=== PATIENT | female | born 1960 | race Caucasian/White ===

== ENCOUNTER → 2016-11-28 | Outpatient (CLI) | payer BC ==
[2016-11-28 18:18] LABS: CH 31.1; CHCM 32.8; HDW 2.17; HGB 13.9 gm/dL (11.4-16.0); MCH 30.7 pg (25.0-35.0); MCHC 32.3 g/dL (31.0-37.0); MCV 95.1 fL (80.0-100.0); RBC 4.52 m/uL (3.80-5.40); RDW 12.9 % (11.5-15.5); WBC 8.6 k/uL (3.8-10.6)
[2016-11-28 18:31] LABS: ALT 63 U/L (9-52); AST 35 U/L (14-36); Alkaline Phosphatase 81 U/L (38-126); Anion Gap 11 mmol/L; Blood Urea Nitrogen 14 mg/dL (7-17); Calcium 9.7 mg/dL (8.4-10.2); Carbon Dioxide 28 mmol/L (22-30); Chloride 102 mmol/L (98-107); Glucose 98 mg/dL (74-99); Non-African American GFR(MDRD) >60 (>60 ml/min/1.73 sqM); Potassium 4.2 mmol/L (3.5-5.1); Sodium 141 mmol/L (137-145); Total Bilirubin 0.6 mg/dL (0.2-1.3); Total Protein 7.5 g/dL (6.3-8.2)
== END ==
LOC: LAB 17:54
PROVIDERS: ATTEND Surgery Plastic and Reconstructive Surgery
DX: K80.10 Calculus of gallbladder with chronic cholecystitis without obstruction (principal); R10.11 Right upper quadrant pain
CPT/HCPCS: 80053; 85027

== ENCOUNTER → 2016-11-29 | Outpatient (CLI) | payer BC ==
--- NOTE | 2016-11-29 08:05 | US ---
EXAMINATION TYPE: US gallbladder DATE OF EXAM: 11/29/2016 COMPARISON: NONE CLINICAL HISTORY: Gallstones K80.10. pt had prior scan elsewhere that showed gb stones EXAM MEASUREMENTS: Liver Length: 15.3 cm Gallbladder Wall: 0.3 cm CBD: 0.4 cm Right Kidney: 9.2 x 3.9 x 5.0 cm Pancreas: wnl Liver: wnl Gallbladder: filled with shadowing stones and debris, wall is borderline thickened, no pericholecyst ic fluid Evidence for sonographic Cunningham's sign: no CBD: wnl Right Kidney: wnl Stone filled gallbladder is present. There is no pericholecystic fluid collection or abnormal gallbla dder wall thickening. Sonographic Cunningham's sign is negative. IMPRESSION: Stone filled gallbladder without secondary ultrasound evidence for acute cholecystitis.
== END | disposition home or self-care (01) ==
LOC: RADUSWWP 07:21
PROVIDERS: ATTEND Surgery Plastic and Reconstructive Surgery
DX: K80.20 Calculus of gallbladder without cholecystitis without obstruction (principal)
CPT/HCPCS: 76705

== ENCOUNTER → 2016-12-01 | Day surgery (SDC) | payer BC ==
[~2016-12-01] MED LIST: ACETAMINOPHEN IV (For NPO) 1,000 MG in EMPTY BAG 1 BAG IVPB STA; D5-0.45% NACL WITH KCL 20MEQ/L 1,000 ML IV SCH; DEXAMETHASONE SOD PHOSPHATE 10 MG/ML 1 ML VIAL IV ONE; GLYCOPYRROLATE 0.2 MG/ML 2 ML VIAL ONE; HEPARIN SODIUM,PORCINE 5,000 UNIT/ML 1 ML VIAL SQ ONE; HYDROcodone/APAP 5-325MG 1 EACH TAB PO PRN; KETOROLAC 30 MG/ML 1 ML VIAL ONE; LACTATED RINGERS 1,000 ML IV SCH; LIDOCAINE 1% 20 ML VIAL (10MG/ML) FOR IV START INTRADERMA ONE; LIDOCAINE 1% INJ 10MG/ML (20 ML MDV) ONE; LIDOCAINE 1% INJ 10MG/ML (20 ML MDV) SQ ONE; LIDOCAINE 4% (PF) 5 ML AMP IH ONE; MIDAZOLAM 2 MG/2 ML VIAL ONE; NALOXONE 0.4 MG/ML 1 ML VIAL IV PRN; NEOSTIGMINE 1 MG/ML 10 ML VIAL ONE; ONDANSETRON 4 MG/2 ML VIAL IVP PRN; ONDANSETRON 4 MG/2 ML VIAL ONE; PHENYLEPHRINE-0.9% NACL SYG 1 MG/10 ML SYRINGE ONE; PROPOFOL 10 MG/ML 20 ML VIAL IV ONE; ROCURONIUM BROMIDE 10 MG/ML 10 ML VIAL IV ONE; SCOPOLAMINE 1.5MG/72HR PATCH TRANSDERM ONE; SODIUM CHLORIDE 0.9% 50 ML with CLINDAMYCIN 600 MG IV ONE; SUCCINYLCHOLINE CHLORIDE 100 MG/5 ML SYR IV ONE; ceFAZolin 2 GM in SODIUM CHLORIDE 0.9% 100 ML IVPB ONE; ePHEDrine 50 MG/ML 1 ML AMP ONE; fentaNYL (PF) 50 MCG/ML 2 ML AMP ONE
[2016-12-01 06:18] VITALS: RESP 16
[2016-12-01] MEDS: ONDANSETRON 4 MG/2 ML VIAL IVP ONE ×3 (06:40→09:40)
--- NOTE | 2016-12-01 07:00 | P.GSHP ---
History of Present Illness H&P Date: 12/01/16 CHIEF COMPLAINT: Cholecystitis HISTORY OF PRESENT ILLNESS: The patient is a 56-year-old female who presents with history of symptomatic gallstones. She underwent diagnostic studies for her gallbladder. Separately her clinical picture is consistent with cholecystitis. Now she presents for surgical intervention. PAST MEDICAL HISTORY: Please see list PAST SURGICAL HISTORY: Please see list MEDICATIONS: Please see list ALLERGIES: Denies. SOCIAL HISTORY: No illicit drug use or recent tobacco use FAMILY HISTORY: Pertinent for gallbladder disease REVIEW OF ORGAN SYSTEMS: CONSTITUTIONAL: No reports of fevers or chills. HEENT: Denies any troubles with the vision or hearing. ENDOCRINE: No reports of hypothyroidism. No diabetes. RESPIRATORY: No recent pneumonias. CARDIOVASCULAR: Denies chest pain or palpitations GI: No blood in stools or constipation. MUSCULOSKELETAL: Denies active joint pain. NEURO: No seizure disorders or headaches. No recent stroke. PSYCH: No depression or suicidal ideation. HEMATOLOGIC: No personal or family history of DVTs or pulmonary emboli. PHYSICAL EXAM: VITAL SIGNS: Afebrile vital signs stable GENERAL: Well-developed pleasant in no acute distress. HEENT: No scleral icterus. Extraocular movements grossly intact. Moist buccal mucosa. NECK: Supple without lymphadenopathy. CHEST: Unlabored respirations. Equal bilateral excursions. CARDIOVASCULAR: Regular rate regular rhythm rhythm. Distal 2+ pulses. ABDOMEN: Soft, nondistended. Minimal tenderness right upper quadrant. MUSCULOSKELETAL: No clubbing, cyanosis, or edema. NEURO: Cranial nerves II to XII within normal limits. No focal or lateralizing signs. PSYCH: Alert and oriented to person, place and time. ASSESSMENT: 1. Right upper quadrant abdominal pain 2. Chronic cholecystitis 3. Symptomatic gallstones. PLAN: 1. Will need a laparoscopic cholecystectomy possible open. Benefits and risks were described. 2. Heparin for DVT prophylaxis 5000 units. 3. Antibiotic prophylaxis. Past Medical History Additional Past Medical History / Comment(s): PRECLAMPSIA History of Any Multi-Drug Resistant Organisms: None Reported Past Surgical History: Section Additional Past Surgical History / Comment(s): HEMORROIDECTOMY, COLONOSCOPSY Past Psychological History: No Psychological Hx Reported Smoking Status: Never smoker Past Alcohol Use History: None Reported Past Drug Use History: None Reported Medications and Allergies Home Medications Medication Instructions Recorded Confirmed Type No Known Home Medications [No 11/30/16 12/01/16 History Known Home Medications] Allergies Allergy/AdvReac Type Severity Reaction Status Date / Time prochlorperazine Allergy Mild Unknown Verified 12/01/16 06:12 [From Compazine] bupivacaine [From Marcaine] Allergy AVOIDS D/T Verified 12/01/16 06:12 FAMILY HX metoclopramide [From Reglan] Allergy DYSTONIC Verified 12/01/16 06:12 REACTION Penicillins Allergy Unknown Verified 12/01/16 06:12 Childhood Surgical - Exam Vital Signs Temp Pulse Resp BP Pulse Ox 98.3 F 90 16 127/84 98 12/01/16 06:17 12/01/16 06:17 12/01/16 06:17 12/01/16 06:17 12/01/16 06:17
[2016-12-01 08:56] VITALS: TEMP 97.8
[2016-12-01] MEDS: HYDROmorphone 1 MG/ML 1 ML SYRINGE IVP PRN ×5 (09:07→09:37)
--- NOTE | 2016-12-01 10:04 | P.PCN ---
Date of Procedure: 12/01/16 Preoperative Diagnosis: Symptomatic gallstones Postoperative Diagnosis: Same Procedure(s) Performed: Laparoscopic cholecystectomy Implants: Anesthesia: GETA, local (40 lidocaine no epinephrine) Surgeon: Venita Castano Estimated Blood Loss (ml): 5 Pathology: other (Gallbladder) Condition: stable Disposition: same day Indications for Procedure: Operative Findings: Adhesions along the lower abdomen, gallstones with chronic cholecystitis Description of Procedure:
[2016-12-01 11:17] VITALS: BP 102/67; PULSE 87
== END | disposition home or self-care (01) ==
LOC: OR 05:59
PROVIDERS: ATTEND Surgery Plastic and Reconstructive Surgery
DX: K80.10 Calculus of gallbladder with chronic cholecystitis without obstruction (principal); Z88.0 Allergy status to penicillin; Z88.8 Allergy status to other drugs, medicaments and biological substances
CPT/HCPCS: 88304; 47562; J2001 ×2; J2250; J1644; J1100; J2710; J2405; J3010; J1885; J1170; J0131; J2370; J0330; J2704

== ENCOUNTER → 2017-11-20 | Outpatient (CLI) | payer BC ==
--- NOTE | 2017-11-20 15:37 | XR ---
EXAMINATION TYPE: XR chest 2V DATE OF EXAM: 11/20/2017 COMPARISON: NONE TECHNIQUE: PA and lateral views submitted. HISTORY: Chest pain FINDINGS: The lungs are clear and there is no pneumothorax, pleural effusion, or focal pneumonia. Biapical pl eural thickening. No overt failure. Hypertrophic change of the spine. Surgical clips in the abdomen. IMPRESSION: 1. No acute process.
== END | disposition home or self-care (01) ==
LOC: RADXRMAIN 15:13
PROVIDERS: ATTEND Emergency Medicine
DX: R07.9 Chest pain, unspecified (principal); R79.1 Abnormal coagulation profile
CPT/HCPCS: 71046

== ENCOUNTER → 2017-11-20 | Outpatient (CLI) | payer BC ==
[2017-11-20 15:19] LABS: HCT 44.4 % (34.0-46.0); HGB 14.9 gm/dL (11.4-16.0); MCH 30.5 pg (25.0-35.0); MCHC 33.5 g/dL (31.0-37.0); MCV 90.9 fL (80.0-100.0); Mean Platelet Volume 6.8; Platelet Count 278 k/uL (150-450); RBC 4.89 m/uL (3.80-5.40); RDW 12.8 % (11.5-15.5); WBC 7.8 k/uL (3.8-10.6)
[2017-11-20 15:30] LABS: ALT 50 U/L (9-52); AST 38 U/L (14-36); Albumin 4.7 g/dL (3.5-5.0); Alkaline Phosphatase 77 U/L (38-126); Anion Gap 12 mmol/L; Blood Urea Nitrogen 13 mg/dL (7-17); Carbon Dioxide 26 mmol/L (22-30); Chloride 105 mmol/L (98-107); Glucose 97 mg/dL (74-99); Magnesium 2.1 mg/dL (1.6-2.3); Potassium 4.5 mmol/L (3.5-5.1); Sodium 143 mmol/L (137-145); Total Bilirubin 0.6 mg/dL (0.2-1.3); Total Protein 7.3 g/dL (6.3-8.2)
[2017-11-20 15:49] LABS: Creatine Kinase 164 U/L (30-135)
[2017-11-20 16:00] LABS: Troponin I <0.012 ng/mL (0.000-0.034)
== END | disposition home or self-care (01) ==
LOC: RADXRMAIN 14:55
PROVIDERS: ATTEND Emergency Medicine
DX: R07.9 Chest pain, unspecified (principal)
CPT/HCPCS: 80053; 82550; 82553; 83735; 84484; 85027; 85379

== ENCOUNTER → 2018-01-21 | Outpatient (CLI) | payer BC ==
--- NOTE | 2018-01-21 18:01 | XR ---
Thoracic spine HISTORY: Pain 3 views of the thoracic spine There is a mild spinal curvature noted. Surgical clips are present in the right upper quadrant. Thora cic vertebral bodies show preserved height, bone mineralization. Multilevel spondylosis is present. M ild loss of disc height and intervertebral levels. IMPRESSION: Degenerative disc disease, mild spinal curvature.
--- NOTE | 2018-01-21 18:05 | XR ---
Cervical spine HISTORY: Pain 5 views of the cervical spine Cervical vertebral bodies show preserved height and bone mineralization. There is reversal the normal cervical lordosis centered at C5-6. Loss of disc height present at the intervertebral levels, there is multilevel spondylosis. Prevertebral soft tissues are normal. Oblique views show foraminal encroac hment due to lateral extension of endplates at C4-5, C5-6 and C6-7 bilaterally, C3-4 and the right, C 7-T1 on the right. Rudimentary cervical ribs noted at C7 on the left greater than right. IMPRESSION: Degenerative disc disease, cervical MRI may be of benefit.
== END | disposition home or self-care (01) ==
LOC: RADXRMAIN 13:38
PROVIDERS: ATTEND Emergency Medicine
DX: M50.33 Other cervical disc degeneration, cervicothoracic region (principal); M43.8X4 Other specified deforming dorsopathies, thoracic region
CPT/HCPCS: 72050; 72072

== ENCOUNTER → 2018-01-21 | Outpatient (CLI) | payer BC ==
--- NOTE | 2018-01-21 21:24 | MR ---
MRI CERVICAL SPINE: CLINICAL HISTORY: Neck pain TECHNIQUE: Multiplanar, multisequence imaging of the cervical spine is performed without IV contrast. COMPARISON: Plain film same date FINDINGS: Sagittal images of the cervical spine show the craniocervical junction to appear within nor mal limits. The cervical and upper thoracic spinal cord is normal in course, caliber, and signal. V ertebral alignment is anatomic. There is multilevel spondylosis with associated endplate discogenic marrow signal change, loss of dis c height signal present at C3-4, C4-5, C5-6 and C6-7. C2-3: Minimal posterior disc bulge causes only slight anterior mass effect on the thecal sac. C3-4: Posterior extension of endplate disc complex extends circumferentially to cause bilateral yifan inal encroachment, there is only mild anterior mass effect on the thecal sac. C4-5: Posterior extension of endplate disc complex results in only mild central canal stenosis, later al extension of endplate disc complex encroaches on the right greater than left neural foramen C5-6: Lateral extension endplate disc complex causes bilateral foraminal encroachment. Posterior exte nsion endplate disc complex causes mild anterior mass effect on the thecal sac. C6-7: Posterior extension endplate disc complex causes only mild anterior mass effect on the thecal s ac, lateral extension endplate disc complex causes bilateral foraminal encroachment. C7-T1: Within normal limits IMPRESSION: Multilevel degenerative disc disease, foraminal encroachment. Mild central canal stenosis as described. MRI thoracic spine: Multiplanar multisequence imaging through the thoracic spine. Thoracic vertebral bodies show preserved height and alignment. There is multilevel spondylosis with e ndplate discogenic marrow signal change. Mild spinal curvature is noted. No significant foraminal enc roachment or central canal stenosis. Thoracic cord signal is maintained. T6-7 shows a minimal posteri or disc herniation anteriorly. No additional sizable disc herniation. Multilevel facet arthropathy gr eater at the lower levels the thoracic spine. IMPRESSION: Degenerative disc disease, facet arthropathy. No significant canal stenosis or foraminal encroachment.
== END ==
LOC: RADMRIMAIN 20:05
PROVIDERS: ATTEND Internal Medicine
DX: M47.812 Spondylosis without myelopathy or radiculopathy, cervical region (principal); M43.9 Deforming dorsopathy, unspecified; M48.02 Spinal stenosis, cervical region; M51.26 Other intervertebral disc displacement, lumbar region
CPT/HCPCS: 72141; 72146

== ENCOUNTER → 2018-07-19 | Outpatient (CLI) | payer BC ==
--- NOTE | 2018-07-22 08:16 | MM ---
Reason for exam: additional evaluation requested from prior study. Last mammogram was performed 18 years and 4 months ago. History: Patient had first child at age 30. Family history of breast cancer in grandmother and breast cancer in mother at age 70. Stereotactic core biopsy x 2. Physical Findings: Patient refused breast exam. MG 3D Diag Mammo W/Cad CARLY Bilateral CC and MLO view(s) were taken. Spot compression MLO and LM view(s) were taken of the right breast. Prior study comparison: July 16, 2017, mammogram. July 12, 2016, mammogram. July 09, 2015, mammogram. July 08, 2014, mammogram. The breast tissue is heterogeneously dense. This may lower the sensitivity of mammography. Previous mammotome biopsy in the right and left breast. Some central asymmetric density right MLO view does not persist on additional views. No significant new findings when compared with previous films. These results were verbally communicated with the patient and result sheet given to the patient on 07/19/18. ASSESSMENT: Negative, BI-RAD 1 RECOMMENDATION: Routine screening mammogram of both breasts in 1 year.
== END | disposition home or self-care (01) ==
LOC: RADMAMWWP 12:14
PROVIDERS: ATTEND Surgery
DX: R92.8 Other abnormal and inconclusive findings on diagnostic imaging of breast (principal)
CPT/HCPCS: 77062; 77066

== ENCOUNTER 2018-12-28 07:31 | Day surgery (SDC) | payer BC ==
[2018-12-27 08:57] VITALS: BMI 24.7
[~2018-12-28 07:31] MED LIST changes: -ACETAMINOPHEN IV (For NPO) 1,000 MG in EMPTY BAG 1 BAG IVPB STA; -D5-0.45% NACL WITH KCL 20MEQ/L 1,000 ML IV SCH; -DEXAMETHASONE SOD PHOSPHATE 10 MG/ML 1 ML VIAL IV ONE; -GLYCOPYRROLATE 0.2 MG/ML 2 ML VIAL ONE; -HEPARIN SODIUM,PORCINE 5,000 UNIT/ML 1 ML VIAL SQ ONE; -HYDROcodone/APAP 5-325MG 1 EACH TAB PO PRN; -KETOROLAC 30 MG/ML 1 ML VIAL ONE; -LIDOCAINE 1% 20 ML VIAL (10MG/ML) FOR IV START INTRADERMA ONE; -LIDOCAINE 1% INJ 10MG/ML (20 ML MDV) ONE; -LIDOCAINE 1% INJ 10MG/ML (20 ML MDV) SQ ONE; -LIDOCAINE 4% (PF) 5 ML AMP IH ONE; -MIDAZOLAM 2 MG/2 ML VIAL ONE; -NALOXONE 0.4 MG/ML 1 ML VIAL IV PRN; -NEOSTIGMINE 1 MG/ML 10 ML VIAL ONE; -ONDANSETRON 4 MG/2 ML VIAL IVP PRN; -ONDANSETRON 4 MG/2 ML VIAL ONE; -PHENYLEPHRINE-0.9% NACL SYG 1 MG/10 ML SYRINGE ONE; -PROPOFOL 10 MG/ML 20 ML VIAL IV ONE; -ROCURONIUM BROMIDE 10 MG/ML 10 ML VIAL IV ONE; -SCOPOLAMINE 1.5MG/72HR PATCH TRANSDERM ONE; -SODIUM CHLORIDE 0.9% 50 ML with CLINDAMYCIN 600 MG IV ONE; -SUCCINYLCHOLINE CHLORIDE 100 MG/5 ML SYR IV ONE; -ceFAZolin 2 GM in SODIUM CHLORIDE 0.9% 100 ML IVPB ONE; -ePHEDrine 50 MG/ML 1 ML AMP ONE; -fentaNYL (PF) 50 MCG/ML 2 ML AMP ONE
[2018-12-28 08:06] VITALS: BP 138/88; PULSE 89; RESP 16; TEMP 98
[2018-12-28] MEDS ORDERED: LACTATED RINGERS 1,000 ML IV ONE (08:39)
[2018-12-28] MEDS ORDERED: LIDOCAINE 1% INJ 10MG/ML (20 ML MDV) ONE (08:40)
[2018-12-28] MEDS ORDERED: PROPOFOL 10 MG/ML 20 ML VIAL IV ONE (08:40)
--- NOTE | 2018-12-28 09:03 | P.PCN ---
Date of Procedure: 12/28/18 Procedure(s) Performed: BRIEF HISTORY: Patient is a 58-year-old pleasant white female, scheduled for an elective colonoscopy as a part of variation of prior history of colon polyps. PROCEDURE PERFORMED: Colonoscopy. PREOPERATIVE DIAGNOSIS: History of colon polyps. IV sedation per Anesthesia. PROCEDURE: After informed consent was obtained, the patient, was brought into the endoscopy unit. IV sedation was administered by Anesthesia under continuous monitoring. Digital rectal examination was normal. Initially the Olympus CF-160 flexible video colonoscope was then inserted in the rectum, gradually advanced into the cecum without any difficulty. Careful examination was performed as the scope was gradually being withdrawn. Ileocecal valve and the appendiceal orifice were visualized and appeared normal. Prep was excellent. Mucosa of the cecum, ascending colon, transverse colon, descending colon, sigmoid colon, and rectum appeared normal. Scattered sigmoid diverticulosis seen. Retroflexion was performed in the rectum and no lesions were seen. The patient tolerated the procedure well. IMPRESSION: Normal-appearing colon from rectum to cecum with no evidence of colorectal neoplasia Scattered sigmoid diverticulosis. RECOMMENDATIONS: Findings of this examination were discussed with the patient as well as a family. She was advised to have a repeat surveillance colonoscopy in 5 years from now because of the prior history of colon polyps..
== END 2018-12-28 10:23 | disposition home or self-care (01) ==
LOC: ORWHC2ENDO 07:31 → 4SSUR 07:32 → ORWHC2ENDO 10:23
PROVIDERS: ATTEND Internal Medicine Gastroenterology
DX: Z12.11 Encounter for screening for malignant neoplasm of colon (principal); K57.30 Diverticulosis of large intestine without perforation or abscess without bleeding; Z86.010 Personal history of colon polyps; Z88.0 Allergy status to penicillin; Z88.8 Allergy status to other drugs, medicaments and biological substances; Z88.4 Allergy status to anesthetic agent
CPT/HCPCS: J2001; J2704; G0105; 45378

== ENCOUNTER → 2019-07-21 | Outpatient (CLI) | payer BC ==
--- NOTE | 2019-07-21 14:51 | MM ---
Reason for exam: additional evaluation requested from prior study. Last mammogram was performed 1 year ago. History: Patient is postmenopausal and had first child at age 30. Family history of breast cancer in maternal aunt at age 70, breast cancer in maternal grandmother at age 60, and breast cancer in mother at age 70. 2 benign stereotactic core biopsies. Physical Findings: Patient refused breast exam. MG 3D Diag Mammo W/Cad CARLY Bilateral CC and MLO view(s) were taken. Prior study comparison: July 19, 2018, bilateral MG 3d diag mammo w/cad CAR[facility]. July 16, 2017, mammogram. The breast tissue is heterogeneously dense. This may lower the sensitivity of mammography. There is a stable 3mm group of right upper outer quadrant calcifications posterior depth calcifications back to 2017. Stable right central, slightly lateral middle depth asymmetry just anterior to the right biopsy marker, more pronounced on 2018 exams. Bilateral biopsy markers noted. These results were verbally communicated with the patient and result sheet given to the patient on 07/21/19. ASSESSMENT: Benign, BI-RAD 2 RECOMMENDATION: Routine screening mammogram of both breasts in 1 year.
== END | disposition home or self-care (01) ==
LOC: RADMAMWWP 14:06
PROVIDERS: ATTEND Surgery
DX: R92.8 Other abnormal and inconclusive findings on diagnostic imaging of breast (principal)
CPT/HCPCS: 77062; 77066

== ENCOUNTER → 2020-06-07 | Outpatient (CLI) | payer BC | END | disposition home or self-care (01) | LOC: LABMAIN 16:13 | PROVIDERS: ATTEND Family Medicine | DX: R43.8 Other disturbances of smell and taste (principal) | CPT/HCPCS: 87635 ==

== ENCOUNTER → 2020-07-26 | Outpatient (CLI) | payer BC ==
--- NOTE | 2020-07-26 14:45 | MM ---
Reason for exam: additional evaluation requested from prior study. Last mammogram was performed 1 year ago. History: Patient is postmenopausal and had first child at age 30. Family history of breast cancer in maternal aunt at age 70, breast cancer in maternal grandmother at age 60, and breast cancer in mother at age 70. 2 benign stereotactic core biopsies. Physical Findings: Nurse did not find any significant physical abnormalities on exam. MG 3D Diag Mammo W/Cad CARLY Bilateral CC and MLO view(s) were taken. Prior study comparison: July 21, 2019, bilateral MG 3d diag mammo w/cad [facility]. July 19, 2018, bilateral MG 3d diag mammo w/cad [facility]. July 16, 2017, mammogram. July 12, 2016, mammogram. The breast tissue is heterogeneously dense. This may lower the sensitivity of mammography. Previous mammotome biopsy in the right and left breast. Central lateral asymmetric density right CC view was present back on 2016 and 2017 as well. No significant new findings when compared with previous films. These results were verbally communicated with the patient and result sheet given to the patient on 07/26/20. ASSESSMENT: Benign, BI-RAD 2 RECOMMENDATION: Routine screening mammogram of both breasts in 1 year.
== END | disposition home or self-care (01) ==
LOC: RADMAMWWP 13:50
PROVIDERS: ATTEND Surgery
DX: R92.8 Other abnormal and inconclusive findings on diagnostic imaging of breast (principal)
CPT/HCPCS: 77062; 77066

== ENCOUNTER 2020-07-28 07:25 | Day surgery (SDC) | payer BC, OTHER ==
[2020-07-27 08:36] VITALS: BMI 24.7
[~2020-07-28 07:25] MED LIST changes: +LIDOCAINE 1% (10MG/ML) FOR IV START INTRADERMA PRN; +MOXIFLOXACIN HCL 0.5% DROPS 3 ML BTL OP PRN; +TETRACAINE 0.5% OPHTH (PF) DROPS 4 ML BTL OP PRN; +TIMOLOL 0.5% OPHTH DROPS 5 ML BTL OP PRN
[2020-07-28 07:58] VITALS: TEMP 97.7
[2020-07-28] MEDS: PHENYLEPHRINE 2.5% OPHTH DRP 2ML OP PRN ×3 (08:01→08:15)
[2020-07-28] MEDS: CYCLOPENTOLATE 1% OPHTH SOLN 2 ML BTL OP PRN ×3 (08:06→08:18)
[2020-07-28] MEDS ORDERED: MIDAZOLAM 2 MG/2 ML VIAL IV ONE (08:22)
[2020-07-28] MEDS ORDERED: fentaNYL (PF) 50 MCG/ML 2 ML AMP ONE (08:52)
[2020-07-28] MEDS ORDERED: MIDAZOLAM 2 MG/2 ML VIAL ONE (08:52)
[2020-07-28] MEDS ORDERED: EPINEPHrine (PF) 0.3 ML in BALANCED SALT IRRIG SOLN COMB2 500 ML IRRIGATION ONE (09:03)
[2020-07-28] MEDS ORDERED: LIDOCAINE 1% (PF) 10MG/ML VIAL MISCELLANE ONE (09:06)
[2020-07-28] MEDS ORDERED: BALANCED SALT IRRIG SOLN COMB2 15 ML IRRIG.SOLN IRRIGATION ONE (09:06)
[2020-07-28] MEDS ORDERED: HYALURONATE SODIUM INTRAOCULAR 1 EACH SYRINGE (12MG/ML) INTRAOCULA ONE (09:06)
[2020-07-28] MEDS ORDERED: ATROPINE OPHTH SOLN 1% 5ML BTL RIGHT EYE ONE (09:29)
--- NOTE | 2020-07-28 09:33 | P.OP ---
Date of Procedure: 07/28/20 Preoperative Diagnosis: NS & CS Postoperative Diagnosis: same Procedure(s) Performed: PIOL< OD Implants: AO!UV 19.00 Anesthesia: MAC Surgeon: Guille Brown Pathology: none sent Condition: stable Disposition: same day Indications for Procedure: blurry vision Operative Findings: no complications
[2020-07-28 09:56] VITALS: BP 117/62; PULSE 71; RESP 17
--- NOTE | 2020-07-28 20:50 | OP ---
OPERATIVE REPORT DATE OF SURGERY: 07/28/2020 PROCEDURE: Phacoemulsification of cataract and Crystalens implant of the right eye. PREOPERATIVE DIAGNOSIS: Nuclear sclerosis and cortical sclerosis. POSTOPERATIVE DIAGNOSIS: Nuclear sclerosis and cortical sclerosis. NARRATIVE: After obtaining the appropriate consent, the patient was brought to the operating room. There the patient was placed under cardiac monitoring, prepped and draped in the usual sterile manner. The patient was approached from the right temporal side. The 5.5 mm Shine ring inked in gentian dalton was placed centrally on the cornea. At the 11 o'clock position, a 1.1 mm keratome was used to create a paracentesis port. Through this opening, 1% Xylocaine MPF 50/50 mix with balanced salt solution was injected into the anterior chamber. This was followed by stabilization of the anterior chamber with Amvisc viscoelastic. At the 9 o'clock position, a 2.75 mm edward keratome was used to create a self-scaling corneal flap incision in a Langerman fashion. Through this opening, a cystotome was introduced to begin a continuous tear capsulorrhexis which was completed using the Utrata forceps. Care was taken to ensure that the capsulorrhexis was at least the size of the mars on the anterior cornea. Hydrodissection and hydrodelineation of the lens was accomplished with balanced salt solution. Phacoemulsification of the lens utilizing phaco chop was accomplished in 12.84 seconds at 11% power. Addition Xylocaine MPF was instilled into the anterior chamber. This was followed by removal of the remaining cortex under irrigation and aspiration along with careful polishing of the posterior capsule in a capsule vacuum mode. Additional Amvisc viscoelastic was then used to stabilize the capsular bag, and the AO 1 UV 19.0 diopters Crystalens intraocular lens was injected into the capsular bag without difficulty. The lens was rotated 270 degrees so that the haptics resided at the 6 and 12 o'clock positions, and all remaining viscoelastic was then removed from within the capsular bag and around the anterior chamber. The eye was brought to normal intraocular pressure through the paracentesis port along with slight hydration of the incision sites. Watertight integrity was confirmed using a fluorescein strip. The patient then received 2 drops of 0.5% Timolol followed by 2 drops of Vigamox and 2 drops of 1% atropine. The patient was then lightly patched and shielded in the usual manner. There was no complication from the procedure. The patient tolerated the procedure well and was returned to [facility] in good condition. PARUL / SHERICEN: [id number] / BRENDA
== END 2020-07-28 10:18 | disposition home or self-care (01) ==
LOC: OR 07:25
PROVIDERS: ATTEND Ophthalmology
DX: H25.011 Cortical age-related cataract, right eye (principal); H25.13 Age-related nuclear cataract, bilateral; H43.391 Other vitreous opacities, right eye; H43.393 Other vitreous opacities, bilateral; H00.026 Hordeolum internum left eye, unspecified eyelid; H00.023 Hordeolum internum right eye, unspecified eyelid; H52.31 Anisometropia; Z97.3 Presence of spectacles and contact lenses; Z98.891 History of uterine scar from previous surgery; Z90.49 Acquired absence of other specified parts of digestive tract; Z87.19 Personal history of other diseases of the digestive system; Z82.3 Family history of stroke; Z83.518 Family history of other specified eye disorder
CPT/HCPCS: 66984; V2632; V2788; J2250; J0171; J3010; J2001

== ENCOUNTER → 2021-02-26 | Outpatient (CLI) | payer BC | LOC: EC 18:11 | PROVIDERS: ATTEND Emergency Medicine | DX: Z20.822 Contact with and (suspected) exposure to COVID-19 (principal); Z88.0 Allergy status to penicillin; Z88.6 Allergy status to analgesic agent; Z88.4 Allergy status to anesthetic agent; Z88.8 Allergy status to other drugs, medicaments and biological substances | CPT/HCPCS: 87635 ==

== ENCOUNTER 2021-03-30 10:35 | Day surgery (SDC) | payer BC ==
[2021-03-30 10:53] VITALS: RESP 16; TEMP 99.1
[2021-03-30] MEDS ORDERED: LACTATED RINGERS 1,000 ML IV ONE (10:54)
[2021-03-30] MEDS ORDERED: LIDOCAINE 1% (10MG/ML) FOR IV START SQ ONE (10:54)
[2021-03-30] MEDS ORDERED: LIDOCAINE 1% INJ 10MG/ML (20 ML MDV) ONE (11:03)
[2021-03-30] MEDS ORDERED: PROPOFOL 10 MG/ML 20 ML VIAL IV ONE (11:03)
--- NOTE | 2021-03-30 11:23 | P.PCN ---
Date of Procedure: 03/30/21 Procedure(s) Performed: Patient is a 61 year-old white female schedule for flexible sigmoidoscopy as p art of evaluation of a diminutive rectal bleeding for the last several months duration. Preoperative diagnosis intermittent rectal bleeding of 6 months duration; Procedure Flexible sigmoidoscopyWith biopsy Anesthesia MAC Description of procedure: The patient was brought into the endoscopy unit IV conscious sedation was administered by anesthesia and continuous monitoring. Initial digital rectal examination was normal. The Olympus CF 160 video colonoscope was then inserted into the rectum and gradually advanced to the splenic flexure. prep was excellent. Careful examination was performed as the scope was gradually being withdrawn.Mucosa of the descending colon; and rectum appeared normal. Retroflexion was performed in the rectum and there was a 7-8 mm in anal polyp identified on the dentate line. and multiple biopsies were done from this polyp. Also there was some hypertrophy of the dentate line noted. Patient tolerated the procedure well. Impression 7-8 mm anal polyp on the dentate line with some friable mucosa status post biopsy : Up to the stomach flexure appeared normal. Recommendations: Findings of this examination were discussed with the patient as well as a family. Await biopsy results.
[2021-03-30 11:46] VITALS: BP 132/86; PULSE 68
== END 2021-03-30 12:00 | disposition home or self-care (01) ==
LOC: ORWHC2ENDO 10:35
PROVIDERS: ATTEND Internal Medicine Gastroenterology
DX: K62.0 Anal polyp (principal); K62.6 Ulcer of anus and rectum; Z88.0 Allergy status to penicillin; Z88.8 Allergy status to other drugs, medicaments and biological substances
CPT/HCPCS: 88305; 45331; J2001; J2704

== ENCOUNTER → 2021-07-27 | Outpatient (CLI) | payer BC ==
--- NOTE | 2021-07-27 08:18 | MM ---
Reason for exam: screening (asymptomatic). Last mammogram was performed 1 year ago. History: Patient is postmenopausal and had first child at age 30. Family history of breast cancer in maternal aunt at age 70, breast cancer in maternal grandmother at age 60, and breast cancer in mother at age 70. 2 benign stereotactic core biopsies. Physical Findings: A clinical breast exam by your physician is recommended on an annual basis and results should be correlated with mammographic findings. MG 3D Screening Mammo W/Cad Bilateral CC and MLO view(s) were taken. Prior study comparison: July 26, 2020, bilateral MG 3d diag mammo w/cad CARLY. July 21, 2019, bilateral MG 3d diag mammo w/cad CARLY. The breast tissue is heterogeneously dense. This may lower the sensitivity of mammography. Stable benign calcifications. Previous mammotome biopsy in the right and left breast. No significant changes when compared with prior studies. ASSESSMENT: Benign, BI-RAD 2 RECOMMENDATION: Routine screening mammogram of both breasts in 1 year.
== END | disposition home or self-care (01) ==
LOC: RADMAMWWP 07:53
PROVIDERS: ATTEND Surgery
DX: Z12.31 Encounter for screening mammogram for malignant neoplasm of breast (principal); Z78.0 Asymptomatic menopausal state; Z80.3 Family history of malignant neoplasm of breast
CPT/HCPCS: 77063; 77067

== ENCOUNTER → 2021-08-24 | Outpatient (CLI) | payer BC | END | disposition home or self-care (01) | LOC: LABWHC1 15:40 | PROVIDERS: ATTEND Emergency Medicine | DX: Z20.822 Contact with and (suspected) exposure to COVID-19 (principal) | CPT/HCPCS: 87635 ==

== ENCOUNTER → 2021-11-15 | Outpatient (CLI) | payer BC | END | disposition home or self-care (01) | LOC: LABMAIN 15:30 | PROVIDERS: ATTEND Emergency Medicine | DX: Z20.822 Contact with and (suspected) exposure to COVID-19 (principal) | CPT/HCPCS: 87502; 87635 ==

== ENCOUNTER → 2022-06-30 | Outpatient (CLI) | payer BC ==
[2022-06-30 18:33] LABS: HCT 45.5 % (37.2-46.3); HGB 14.6 g/dL (12.0-15.0); MCH 30.5 pg (27.0-32.0); MCHC 32.1 g/dL (32.0-37.0); Mean Platelet Volume 9.9 fL (9.5-12.2); NRBC Per 100 WBC 0 /100 WBCS (0.0-0.0); Platelet Count 319 X 10*3/uL (140-440); RBC 4.79 X 10*6/uL (4.10-5.20); RDW 12.7 % (11.5-14.5)
[2022-06-30 18:44] LABS: ALT 30 U/L (8-44); AST 21 U/L (13-35); African American GFR (CKD) 93.7 (60.0-200.0); Albumin 4.8 g/dL (3.8-4.9); Albumin/Globulin Ratio 1.93 (1.60-3.17); Alkaline Phosphatase 78 U/L (41-126); BUN/Creat Ratio 15.98 Ratio (12.00-20.00); Blood Urea Nitrogen 12.4 mg/dL (9.0-27.0); Calcium 9.9 mg/dL (8.7-10.3); Carbon Dioxide 27.4 mmol/L (20.0-27.5); Chloride 105 mmol/L (96-109); Chol/HDL Ratio 3.03 Ratio; Globulin 2.5 g/dL (1.6-3.3); Glucose 113 mg/dL (70-110); LDL Cholesterol,Calculated 165.2 mg/dL (0.0-131.0); Non-African American GFR(CKD) 80.8 (60.0-200.0); Potassium 4.4 mmol/L (3.5-5.5); Sodium 143 mmol/L (135-145); Total Protein 7.3 g/dL (6.2-8.2); VLDL Calculation 18.34 mg/dL (5.00-40.00)
== END | disposition home or self-care (01) ==
LOC: LABWHC1 10:19
PROVIDERS: ATTEND Surgery
DX: Z00.00 Encounter for general adult medical examination without abnormal findings (principal)
CPT/HCPCS: 36415; 80053; 80061; 85027

== ENCOUNTER → 2022-07-11 | Outpatient (CLI) | payer BC ==
--- NOTE | 2022-07-11 17:40 | US ---
EXAMINATION TYPE: US renals and bladder DATE OF EXAM: 07/11/2022 COMPARISON: NONE CLINICAL HISTORY: R31.9 hematuria. EXAM MEASUREMENTS: Right Kidney: 9.6 x 3.4 x 4.0 cm Left Kidney: 9.7 x 4.7 x 4.8 cm Right Kidney: wnl Left Kidney: wnl Bladder: not fully distended, wnl as seen Bilateral Jets seen: no There is no evidence for hydronephrosis at this point in time. No nephrolithiasis is seen. No hyun s are identified. Urinary bladder is underdistended and anechoic in appearance. IMPRESSION: Unremarkable renal ultrasound.
== END | disposition home or self-care (01) ==
LOC: RADUSWWP 13:18
PROVIDERS: ATTEND Internal Medicine
DX: R31.9 Hematuria, unspecified (principal)
CPT/HCPCS: 76770

== ENCOUNTER → 2023-07-09 | Outpatient (CLI) | payer BC, MEDICARE ==
--- NOTE | 2023-07-09 08:54 | MM ---
Reason for Exam: Additional evaluation requested from prior study. Last screening mammogram was performed 11 month(s) ago. Patient History: Menarche at age 11. First Full-Term at age 30. Late child-bearing (after 30). Postmenopausal. , Benign Stereotactic Core Biopsy. , Benign Stereotactic Core Biopsy. Maternal grandmother had breast cancer, age 60. Maternal aunt had breast cancer, age 65. Mother had breast cancer, right, age 70. Mother had breast cancer, left, age 78. Risk Values: Maria 5 year model risk: 5.0%. NCI Lifetime model risk: 17.8%. Prior Study Comparison: 07/09/2015 Screening Mammogram, Unknown. 07/12/2016 Screening Mammogram, Unknown. 07/19/2018 Bilateral Diagnostic Mammogram, [facility]. 07/21/2019 Bilateral Diagnostic Mammogram, [facility]. 07/26/2020 Bilateral Diagnostic Mammogram, [facility]. 07/27/2021 Bilateral Screening Mammogram, [facility]. 07/31/2022 Left MG 3D work up w/cad LT, [facility]. 07/31/2022 Left US breast workup limited LT, [facility]. 07/31/2022 Bilateral MG 3D screening mammo w/cad, [facility]. 01/04/2023 Left US breast limited LT, [facility]. Tissue Density: The breast tissue is heterogeneously dense. This may lower the sensitivity of mammography. Findings: Analyzed By CAD. Microclip on either side from prior biopsies. Benign scattered punctate calcifications throughout the right greater the left breast. Underlying subareolar nodularity left breast remains unchanged for one year. Ultrasound recommended. Otherwise, no significant change. Overall Assessment: Incomplete: need additional imaging evaluation, BI-RAD 0 Management: Diagnostic Breast Ultrasound of the left breast. Electronically signed and approved by: Clinton Collins M.D. Radiologist
--- NOTE | 2023-07-09 09:18 | USB ---
Reason for Exam: Follow-up at short interval from prior study. Patient History: Menarche at age 11. First Full-Term at age 30. Late child-bearing (after 30). Postmenopausal. , Benign Stereotactic Core Biopsy. , Benign Stereotactic Core Biopsy. Maternal grandmother had breast cancer, age 60. Maternal aunt had breast cancer, age 65. Mother had breast cancer, right, age 70. Mother had breast cancer, left, age 78. Risk Values: Maria 5 year model risk: 5.0%. NCI Lifetime model risk: 17.8%. Technique: Method: Targeted. Prior Study Comparison: 07/27/2021 Bilateral Screening Mammogram, [facility]. 07/31/2022 Left MG 3D work up w/cad LT, [facility]. 07/31/2022 Bilateral MG 3D screening mammo w/cad, [facility]. Findings: The axilla of the left breast and the retroareolar of the left breast were scanned. Targeted ultrasound subareolar left breast including the axilla. There is a stable cystic dilatation of a subareolar duct measuring 8 x 7 x 3 mm, unchanged from 01/04/2023. No internal filling defect. No other solid or cystic lesion or axillary lymphadenopathy. Overall Assessment: Probably benign, BI-RAD 3 Management: Diagnostic Mammogram of both breasts in 1 year. A clinical breast exam by your physician is recommended on an annual basis and results should be correlated with mammographic findings. This exam should not preclude additional follow-up of suspicious palpable abnormalities. Results were given to the patient verbally at the time of exam. Note on Maria scores and lifetime risk: 1. A Maria score greater than 3% is considered moderate risk. If this is the case, consider specialist referral to assess eligibility for a risk reducing agent. 2. If overall lifetime risk for the development of breast cancer is 20% or higher, the patient may qualify for future screening with alternating mammogram and breast MRI. Electronically signed and approved by: Clinton Collins M.D. Radiologist
== END | disposition home or self-care (01) ==
LOC: RADMAMWWP 08:12
PROVIDERS: ATTEND Surgery
DX: R92.333 Mammographic heterogeneous density, bilateral breasts (principal); Z78.0 Asymptomatic menopausal state; Z80.3 Family history of malignant neoplasm of breast
CPT/HCPCS: 77062; 77066

== ENCOUNTER 2023-07-25 06:11 | Day surgery (SDC) | payer MEDICARE, BC ==
[2023-07-23 17:25] VITALS: BMI 25.1
[2023-07-25 06:34] VITALS: RESP 16; TEMP 97.6
[2023-07-25] MEDS: LACTATED RINGERS 1,000 ML IV SCH (06:43)
[2023-07-25] MEDS ORDERED: PROPOFOL 10 MG/ML 20 ML VIAL IV ONE (06:59)
--- NOTE | 2023-07-25 07:23 | P.PCN ---
Date of Procedure: 07/25/23 Procedure(s) Performed: BRIEF HISTORY: Patient is a 63-year-old pleasant white female scheduled for an elective colonoscopy as a part of evaluation of intermittent rectal bleeding for the last 6 months duration. PROCEDURE PERFORMED: Colonoscopy snare polypectomy. PREOPERATIVE DIAGNOSIS: Intermittent rectal bleeding. IV sedation per Anesthesia. PROCEDURE: After informed consent was obtained, the patient, was brought into the endoscopy unit. IV sedation was administered by Anesthesia under continuous monitoring. Digital rectal examination was normal. Initially the Olympus CF-160 flexible video colonoscope was then inserted in the rectum, gradually advanced into the cecum without any difficulty. Careful examination was performed as the scope was gradually being withdrawn. Ileocecal valve and the appendiceal orifice were visualized and appeared normal. Prep was excellent. Mucosa of the cecum, normal. In the ascending colon there was a 5 mm sessile polyp that was removed by cold snare polypectomy. Rest of the colon appeared normal. In the descending colon there was another 5 mm sessile polyp removed by cold snare polypectomy. Scattered left sided diverticulosis seen. ascending colon, transverse colon, descending colon, sigmoid colon, and rectum appeared normal. Retroflexion was performed in the rectum and small internal hemorrhoids and any matters inflamed skin tag measuring 1 cm in length were seen. The patient tolerated the procedure well. IMPRESSION: 5 mm ascending colon polyp status post cold snare polypectomy 5 mm descending colon polyp status post cold snare polypectomy Scattered sigmoid diverticulosis Small internal hemorrhoids and inflamed external skin tag RECOMMENDATIONS: Findings of this examination were discussed with the patient as well as a family. She was advised to follow with the biopsy results. Continue with a high-fiber diet and take fiber supplements a regular basis. If the biopsy reveals adenoma she can have a repeat colonoscopy in 5 years..
[2023-07-25 08:06] VITALS: BP 113/73; PULSE 73
== END 2023-07-25 08:10 | disposition home or self-care (01) ==
LOC: ORWHC2ENDO 06:11
PROVIDERS: ATTEND Internal Medicine Gastroenterology
DX: D12.2 Benign neoplasm of ascending colon (principal); D12.4 Benign neoplasm of descending colon; K62.5 Hemorrhage of anus and rectum; K64.8 Other hemorrhoids; Z88.0 Allergy status to penicillin; Z88.6 Allergy status to analgesic agent; Z88.4 Allergy status to anesthetic agent; Z88.8 Allergy status to other drugs, medicaments and biological substances; Z79.899 Other long term (current) drug therapy
CPT/HCPCS: 45385; J2704; 88305

== ENCOUNTER → 2024-07-10 | Outpatient (CLI) | payer MEDICARE, BC ==
--- NOTE | 2024-07-10 16:03 | MM ---
Reason for Exam: Follow-up at short interval from prior study. Last screening mammogram was performed 12 month(s) ago. Patient History: Menarche at age 11. First Full-Term at age 30. Late child-bearing (after 28). Postmenopausal. , Benign Stereotactic Core Biopsy. , Benign Stereotactic Core Biopsy. Maternal grandmother had breast cancer, age 60. Maternal aunt had breast cancer, age 65. Mother had breast cancer, right, age 70. Mother had breast cancer, left, age 78. Risk Values: Maria 5 year model risk: 5.1%. NCI Lifetime model risk: 17.2%. Prior Study Comparison: 07/31/2022 Left MG 3D work up w/cad LT, [facility]. 07/31/2022 Left US breast workup limited LT, [facility]. 07/31/2022 Bilateral MG 3D screening mammo w/cad, [facility]. 01/04/2023 Left US breast limited LT, [facility]. 07/09/2023 Bilateral MG 3D diag mammo w/cad CAR[facility], [facility]. 07/09/2023 Left US breast limited LT, [facility]. Tissue Density: The breasts are heterogeneously dense, which may obscure small masses. Findings: Analyzed By CAD. Chronic nodularity subareolar left breast, now unchanged for 2 years compatible with a benign etiology. Asymmetric density medial posterior left CC view also remains unchanged. Microclip in both breast from prior biopsies. No significant change from prior exams. Overall Assessment: Benign, BI-RAD 2 Management: Diagnostic Mammogram of both breasts in 1 year. See note below in regards to patient's increased 5 year Maria score. Results were given to the patient verbally at the time of exam. Patient should continue monthly self-breast exams. A clinical breast exam by your physician is recommended on an annual basis. This exam should not preclude additional follow-up of suspicious palpable abnormalities. Note on Maria scores and lifetime risk: 1. A Maria score greater than 3% is considered moderate risk. If this is the case, consider specialist referral to assess eligibility for a risk reducing agent. 2. If overall lifetime risk for the development of breast cancer is 20% or higher, the patient may qualify for future screening with alternating mammogram and breast MRI. [facility], , 07/10/2024 3:55 PM. Electronically signed and approved by: Clinton Collins M.D. Radiologist
== END | disposition home or self-care (01) ==
LOC: RADMAMWWP 15:29
PROVIDERS: ATTEND Surgery
DX: R92.2 Inconclusive mammogram (principal); R92.8 Other abnormal and inconclusive findings on diagnostic imaging of breast; R92.333 Mammographic heterogeneous density, bilateral breasts; Z80.3 Family history of malignant neoplasm of breast; Z78.0 Asymptomatic menopausal state
CPT/HCPCS: 77066; G0279; 77062